=== PATIENT | female | born 1965 | race African-American/Black ===

== ENCOUNTER → 2018-12-02 | Outpatient (CLI) | payer BC ==
--- NOTE | 2018-12-02 13:20 | Diagnostic Imaging Report ---
EXAMINATION: Transabdominal pelvic ultrasound. CLINICAL INDICATION: Ovarian cyst COMPARISON: None available DISCUSSION: Transverse and sagittal transabdominal images were obtained. The uterus has been removed. Neither the left nor the right ovary is identified secondary to overlying bowel gas. No adnexal mass. No free fluid. Urinary bladder is unremarkable. IMPRESSION: Status post hysterectomy. Nonvisualization of the ovaries due to overlying bowel gas. No adnexal mass. Transvaginal pelvic ultrasound is more sensitive for evaluation of the ovaries and should be considered for further evaluation if clinically warranted. Signed by: Dr. Carl Solitario M.D. on 12/02/2018 1:17 PM
== END ==
LOC: MAMMO 09:12
PROVIDERS: ATTEND Internal Medicine
DX: Z12.31 Encounter for screening mammogram for malignant neoplasm of breast (principal); N83.209 Unspecified ovarian cyst, unspecified side
CPT/HCPCS: 76856; 77067

== ENCOUNTER → 2018-12-31 | Day surgery (SDC) | payer BC ==
[~2018-12-31] MED LIST: ACETAMINOPHEN 1000 MG/100 ML IV ONE; AMLODIPINE BESYL5 MG PO; BUPIVACAINE 0.25% 30ML SDV INJ ONE; CEFAZOLIN SOD 1 GM/NS 50ML 100 ML IV ONE; CYCLOBENZAPRINE10 MG PO; DEXAMETHASONE SOD PHOS INJ 4 MG/ML VIAL ONE; FENTANYL CITRATE/PF 100MCG/2 ML INJ ONE; GABAPENTIN300 MG PO; IBUPROFEN 800MG/ 250ML 250 ML IV ONE; KETOROLAC TROMETHAMINE 30 MG/ML VIAL IV NR; KETOROLAC TROMETHAMINE 30 MG/ML VIAL ONE; LIDOCAINE 1% W/EPINEPHRINE 20 ML VIAL ONE; LIDOCAINE HCL 2% LOCAL INJ 5 ML SDV VIAL INJ ONE; MELOXICAM7.5 MG PO; MEPERIDINE HCL INJ 25 MG/ML VIAL ONE; MIDAZOLAM HCL 2 MG/2 ML VIAL ONE; ONDANSETRON HCL INJ 2MG/ML 2ML 2 MG/ML VIAL ONE; PROPOFOL IV EMULSION 10 MG/ML 20 ML VIAL ONE; SEVOFLURANE INHAL SOLN 250 ML PEN BTL ONE
--- OUTSIDE RECORDS SUMMARY | 2018-12-31 05:31 | XMS REPORT | Clinical Summary ---
Author Author [facility] Organization [facility] Address Unknown Phone Unavailable Care Team Providers Care Tomato Grader Name Role Phone Miracle Cole MD PCP Allergies No Known Allergies Medications End Date Status Medication Sig Dispensed Refills Start Date Active amLODIPine (NORVASC) 5 mg Take 5 mg by 0 tablet mouth daily. 9 Active buPROPion XL (WELLBUTRIN bupropion HCl 0 XL) 150 MG 24 hr tablet XL 150 mg 24 hr tablet, extended release Active diclofenac (VOLTAREN) 75 diclofenac 0 MG EC tablet sodium 75 mg tablet,delaye d release Active gabapentin (NEURONTIN) 0 300 mg capsule 9 Active meloxicam (MOBIC) 15 mg TAKE 1 TABLET 2 tablet EVERY DAY 9 WITH FOOD Active omeprazole (PriLOSEC) 40 omeprazole 40 0 MG capsule mg capsule,delay ed release Active telmisartan (MICARDIS) 20 telmisartan 0 MG tablet 20 mg tablet Active Problems Not on file Encounters Care Team Description Date Type Specialty Cyndi Shaver MA 12/16/2018 Telephone Orthopedic Surgery Adriana Rahman MD Right knee pain, unspecified chronicity (Primary Dx); Complex tear of medial meniscus of right knee as current injury, initial encounter 12/15/2018 Office Visit Orthopedic Surgery after 12/30/2017 Family History Medical History Relation Name Comments Diabetes Mother Christopher Fine Stroke Mother Christopher Fine Relation Name Status Comments Mother Christopher Fine Social History Date Tobacco Use Types Packs/Day Years Used Never Smoker 0 0 Smokeless Tobacco: Never Used Alcohol Use Drinks/Week oz/Week Comments Not Currently 1 Glasses of wine Sex Assigned at Date Recorded Not on file Industry Job Start Date Occupation Not on file Not on file Not on file Travel End Travel History Travel Start No recent travel history available. Last Filed Vital Signs Time Taken Vital Sign Reading - Blood Pressure - - Pulse - - Temperature - - Respiratory Rate - - Oxygen Saturation - - Inhaled Oxygen - Concentration 12/15/2018 2:12 PM CDT Weight 59 kg (130 lb) 12/15/2018 2:12 PM CDT Height 161.3 cm (5' 3.5") 12/15/2018 2:12 PM CDT Body Mass Index 22.67 Plan of Treatment Health Maintenance Due Date Last Done Comments BREAST CANCER SCREENING 2016 COLONOSCOPY SCREENING 2016 SHINGLES VACCINES (#1) 2016 INFLUENZA VACCINE 01/07/2019 Procedures Comments Procedure Name Priority Date/Time Associated Diagnosis XR KNEE 4+ VW RIGHT Routine 12/15/2018 Right knee pain, 2:40 PM CDT unspecified chronicity after 12/30/2017 Results * XR Knee 4+ Vw Right (12/15/2018 2:40 PM CDT) Specimen Narrative Performed At [facility] Radiographs of the right knee, 4 views, standing AP, standing PA notch, lateral, and sunrise views: No fracture, no dislocation, normal alignment, preserved joint spaces, and no pathologic lesion Performing Organization Address City/State/Zipcode Phone Number [facility] [address] [place] [address] after 12/30/2017 Insurance Type Payer Benefit Subscriber ID Effective Phone Address Plan / Dates Group PPO BCBS BCBS xxxxxxxxx [id number] CHOICE resent PPO/MURALI GRIFFIN PPO Advance Directives Patient has advance care planning documents on file. For more information, fransico carmona contact: Leodan Rodriguez [address] [place] [address]
--- OUTSIDE RECORDS SUMMARY | 2018-12-31 05:31 | XMS REPORT ---
Author Author [facility] Address Unknown Phone Unavailable Care Team Providers Care Speech Language Pathologist Travel Name Role Phone SRINI GOMEZ Unavailable Unavailable Problems This patient has no known problems. Allergies, Adverse Reactions, Alerts This patient has no known allergies or adverse reactions. Medications This patient has no known medications. Results Test Description Test Time Test Comments Text Results Atomic Results Result Comments US PELVIS COMPLETE NON OB 2018-12-02 13:15:00 [place] [address] Patient Name: JERICA GALLEGO MR #: [id number] : 1965 Age/Sex: 53/F Req #: [id number] Adm Physician: Ordered by: SRINI GOMEZ MD Report #: [id number] Location: MAMMO Room/Bed: Procedure: [id number] US/US PELVIS COMPLETE NON OB Exam Date: 12/02/18 Exam Time: 1022 REPORT STATUS: Signed EXAMINATION: Transabdominal pelvic ultrasound. CLINICAL INDICATION: Ovarian cyst COMPARISON: None available DISCUSSION: Transverse and sagittal transabdominal images were obtained. The uterus has been removed. Neither the left nor the right ovary is identified secondary to overlying bowel gas. No adnexal mass. No free fluid. Urinary bladder is unremarkable. IMPRESSION: Status post hysterectomy. Nonvisualization of the ovaries due to overlying bowel gas. No adnexal mass. Transvaginal pelvic ultrasound is more sensitive for evaluation of the ovaries and should be considered for further evaluation if clinically warranted. Signed by: Dr. Levon Woods M.D. on 12/02/2018 1:17 PM Dictated By: LEVON WOODS MD 16 Transcribed By: SADIA on 12/02/181316 COPY TO: SRINI GOMEZ MD MAMMOGRAPHY DIGITAL SCR BILAT 2018-12-02 10:16:00 [place] [address] Patient Name: JERICA GALLEGO MR #: [id number] : 1965 Age/Sex: 53/F Req #: [id number] Adm Physician: Ordered by: SRINI GOMEZ MD Report #: [id number] Location: MAMMO Room/Bed: Procedure: [id number] MG/MAMMOGRAPHY DIGITAL SCR BILAT Exam Date: 12/02/18 Exam Time: 0946 REPORT STATUS: Signed #[id number] - [id number] #BILATERAL DIGITAL SCREENING MAMMOGRAM WITH CAD: 12/02/2018 CLINICAL: Routine screening. Comparison is made to exams dated: 08/09/2010 mammogram - [facility], 11/28/2014 mammogram and 11/28/2014 ultrasound - [facility]. Current study contains 4 films. The tissue of both breasts is extremely dense, which lowers the sensitivity of mammography. Current study was also evaluated with a Computer Aided Detection (CAD) system. Benign appearing calcifications, left breast. Stable left breast lipoma also noted. No significant masses, calcifications, or other findings are seen in either breast. IMPRESSION: BENIGN There is no mammographic evidence of malignancy. A 1 year screening mammogram is recommended. The patient will be notified by letter of the results. STERLING solares/emilie:12/18/2018 11:19:12 Patient Financial Services Specialist: Poonam MOSS (R)), [facility] letter sent: Compared to Prior B9 Mammogram BI-RADS: 2 Benign Dictated By: STERLING PARRA MD [id number] Transcribed By: EMILIE on 12/18/18 1119 COPY TO: SRINI GOMEZ MD
[2018-12-31 10:00] VITALS: BP 141/86
--- NOTE | 2018-12-31 22:06 | NUR ---
OPERATIVE NOTE ORTHOPEDICS DATE OF SURGERY: 12/31/18 PREOPERATIVE DIAGNOSES: Right Knee Medial Meniscus Tear POSTOPERATIVE DIAGNOSES: Right Knee Medial Meniscus Tear, Lateral Tibial Plateau Chondromalacia, Impinging Medial Plicaf PROCEDURE: Right Knee Arthroscopic Medial Meniscus Repair, Lateral Plateau Chondroplasty, Excision of Medial Plica, Application of Fibrin Clot SURGEON: Vania Davis DO ANESTHESIA: General COMPLICATIONS: None TOURNIQUET: Applied but not inflated. No tourniquet EBL: Minimal INDICATIONS: Due to persistent pain and limitations on activity combined with findings on exam and imaging, the patient requests surgical treatment. Nonopera tive care and alternative surgical options were reviewed. We agreed that this provided the best risk/benefit profile for this patient, understanding and accepting risks of recurrent/persistent symptoms, infection, bleeding, stiffness, neurological/vascular damage, failure to improve and anesthetic complication (as reviewed by anesthesia service). Also, the patient understands that arthroscopic treatment of articular cartilage lesions provides temporary incomplete relief but that meniscal symptoms should be well addressed. FINDINGS: RIGHT Knee Patella Normal Trochlea - Normal Lateral Gutter Normal Medial Gutter Normal Medial Compartment Femoral - Grade 1 Chondromalacia Tibial - Grade 1 Chondromalacia Medial Meniscus - Compex radial tear to meniscocapsular junction Cruciate region - Normal Lateral Compartment Femoral - Normal Tibial - Grade 2 Chondromalacia Lateral Meniscus - Normal Synovium - Impinging medial plica in medial patellofemoral compartment PROCEDURE:With the patient in the supine position with all prominences well padded, general anesthesia was obtained. Sterile prepping and draping were performed. Antibiotics had been given and a time out performed. After an injecti on of 1% Lidocaine with Epinephrine in the proposed incision sites, The arthroscope was inserted via a small lateral parapatellar tendon incision into the patellofemoral space. Under direct visualization, a medial parapatellar tendon portal was created providing a working portal. Diagnostic arthroscopy was performed and the above findings were noted. Within the medial compartment, a complex posterior horn medial meniscus tear was noted to the meniscocapsular junction. After trephination, the medial meniscus was debrided to to the red white junction and through the use of ceterix novostitch and fast fix sutures the radial tear was repaired. to the meniscocapsular junction and to the torn edges. Approximately 40% of the posterior horn near the tear of the medial meniscus was excised. A stable border was created. There was grade 1 chondromalacia, which was debrided to stable borders. Within the intercondylar space, the ACL was visualized and intact The lateral compartment demonstrated a normal lateral meniscus with grade 2 chondromalacia of the tibial plateau. This was debrided to a stable border. Within the patellofemoral space, the impinging plica was excised. Under direct visualization, a spinal needle was introduced toward the medial meniscus repair. Through 60 cc of the patients blood, an autologous fibrin clot was created. This was injected over the meniscus to improve biologic healing. The joint was extravasated and .25% marcaine was injected into the knee. The incisions were closed and more local was injected around the portal sites.Steristrips, Xeroform, 4x4s, ABDs and a compressive PEG bandage were applied. The patient was awakened and transferred to the PACU in satisfactory condition having tolerated the procedure well.
== END | disposition home or self-care (01) ==
LOC: OR 05:06
PROVIDERS: ATTEND Orthopaedic Surgery
DX: S83.231A Complex tear of medial meniscus, current injury, right knee, initial encounter (principal); M94.261 Chondromalacia, right knee; M67.51 Plica syndrome, right knee; M54.5 Low back pain; K21.9 Gastro-esophageal reflux disease without esophagitis; I10 Essential (primary) hypertension; E78.5 Hyperlipidemia, unspecified; I45.10 Unspecified right bundle-branch block; X58.XXXA Exposure to other specified factors, initial encounter; Z01.810 Encounter for preprocedural cardiovascular examination
CPT/HCPCS: 29881; 93005; C1713 ×3; C1893; J0131; J0690; J1100; J1885; J2001; J2175; J2250; J2405; J2704; J3010